=== PATIENT | female | born 2000 | race Caucasian/White ===

== ENCOUNTER 2021-08-26 20:38 | Emergency (ER) | payer OTHER ==
[~2021-08-26] VITALS: Ht 167.6 cm; Wt 59.0 kg
[2021-08-26] MEDS ORDERED: GLYCOPYRROLATE2 MG (21:01)
== END 2021-08-27 00:34 | disposition home or self-care (01) ==
LOC: ER 20:38
DX: O20.0 Threatened abortion (principal)